=== PATIENT | male | born 1985 | race Caucasian/White ===

== ENCOUNTER 2017-12-23 10:04 | Day surgery (SDC) | payer MEDICAID ==
[2017-12-23] MEDS ORDERED: ceFAZolin 1 gm FROZEN Premix 2 GM/100 ML ML IVPB ONE (14:10)
[2017-12-23] MEDS ORDERED: Lidocaine Hydrochloride 10 ML INJ ONE (14:10)
[2017-12-23] MEDS ORDERED: Bupivacaine 0.25% 20 ML INJ IJ ONE ×2 (14:11→15:29)
[2017-12-23] MEDS ORDERED: Propofol 10 mg/ml Inj (20 ML) ONE (14:16)
[2017-12-23] MEDS ORDERED: Midazolam 2 MG/2 ML VIAL ONE (14:16)
[2017-12-23] MEDS ORDERED: Propofol 10 mg/ml 1,000 MG/100 ML VIAL ONE (14:25)
[2017-12-23] MEDS ORDERED: Oxycodone/Acetaminophen 5/325 mg Tab PO PRN ×2 (15:46)
[2017-12-23] MEDS ORDERED: HYDROmorphone 0.5 mg/0.5 ml ISec IVP PRN (15:49)
--- NOTE | 2017-12-23 15:54 | PCM.SURG1 ---
Surgeon's Initial Post Op Note - Surgeon's Notes Surgeon: Dr. Adams Ro Precision Dyer: Pinky Hernandes PGY1, Brook Abdi PGY3 Type of Anesthesia: IV Sedation, Local Anesthesia Administered By: Dr. Alfaro Pre-Operative Diagnosis: gangrenous changes to the right hallux Operative Findings: see dictation. Injectibles: preop- 20 cc of 1:1 mixture of .25% marcaine and 1% Lidocaine. postop- 10 cc of .25% marcaine. Materials: 3-0 Prolene, Integra single layer graft. pathology: distal phalanx and proximal phalanx bone cultures. Deep wound cultures taken intra-op Post-Operative Diagnosis: same Operation Performed: 1)Right partial hallux amputation. 2)Complex wound closure of the distal aspect of the right hallux Specimen/Specimens Removed: Distal phalanx and proximal phalanx of the hallux sent for pathology. Estimated Blood Loss: EBL {In ML}: 10 Blood Products Given: N/A Drains Used: No Drains Post-Op Condition: Good Date of Surgery/Procedure: 12/23/17 Time of Surgery/Procedure: 15:57
[2017-12-23 16:07] VITALS: O2SAT 100
[2017-12-23 17:00] VITALS: RESP 18; TEMP 97.7
--- NOTE | 2017-12-23 17:20 | RAD ---
Date of service: 12/23/2017 PROCEDURE: Right Foot Radiographs. HISTORY: Status post right partial hallux amputation COMPARISON: None. FINDINGS: BONES: The bones are diffusely demineralized limiting detail and evaluation. Apparent partial resection of the distal phalanx. There are what appear to represent destructive changes of the distal aspect of the proximal phalanx great toe with apparent soft tissues of the distal stump. There are also destructive changes of the distal phalanx 2nd toe.. Note that the possibility of destructive changes the distal phalanges of the 3rd 4th and 5th toes not excluded. Tiny posterior calcaneal enthesophyte JOINTS: Probable mild DJD 1st MTP joint.. Note that the third cuneiform and cuboid difficult to separate from 1 another due to diffuse demineralization. SOFT TISSUES: As above. Diffuse infiltration changes of the remaining soft tissues; rule out cellulitis OTHER FINDINGS: None. IMPRESSION: Diffuse demineralization limits evaluation. Apparent partial resection of the distal phalanx. There are what appear to represent destructive changes of the distal aspect of the proximal phalanx great toe with apparent soft tissues of the distal stump. There are also destructive changes of the distal phalanx 2nd toe.. Note that the possibility of destructive changes the distal phalanges of the 3rd 4th and 5th toes not excluded. Diffuse infiltration changes of the remaining soft tissues; rule
[2017-12-23 18:41] VITALS: BP 123/69; PULSE 80
--- NOTE | 2017-12-26 16:37 | PCM.OP ---
Operative Report - Operative Report Date of Surgery/Procedure: 12/23/17 Time of Surgery/Procedure: 14:30 Surgeon: Dr. Adams Ro DPM Tube Wrapper: Pinky Hernandes PGY1 Brook Abdi PGY3 Anesthesia/Sedation: IV sedation with local anesthesia Preoperatively: 20 cc of 1:1 mixture of .25% Marcaine and 1% Lidocaine proximal hallux block Postoperatively: 10 cc of 25% Marcaine proximal hallux block Pre-Operative Diagnosis: gangrenous changes to the right hallux with a nonhealing wound secondary to trauma. Post-Operative Diagnosis: gangrenous changes to the right hallux with a nonhealing wound secondary to trauma. Indication for Surgery: The patient is a 32 year-old male with the above diagnoses. The patient has exhausted all conservative treatment at this time and now requires surgical intervention. The patient signed the consent after careful explanation of risks, benefits, complication and alternatives for surgical procedure. No guarantees were given nor implied. Operative Findings: The patient was brought in to the operating room and placed on the operating room table in a supine position. Timeout was performed for identification of the correct patient and procedure. After induction of IV sedation, the patient received a total of 20mL of 1:1 mixture of 1% lidocaine plain and 0.25% marcaine plain in a local block type fashion to the right hallux. Once local anesthesia was achieved, well padded tourniquet was placed around the ankle at 200 mmHG. The right foot and ankle were then prepped and draped in normal sterile manner. Procedure/Operation Description: 1. Right partial hallux amputation 2. Complex wound closure of the distal aspect of the right hallux Procedure #1: partial amputation of the right hallux Attention was directed to the distal tip of the right hallux where necrotic scab was noted held to the hallux with sutures. Using a sterile scissor the sutures were removed. Upon removal of the scab, a wound was noted with exposed distal phalanx of the hallux. Bone was resected down to the midshaft of proximal phalanx of the hallux using a rongeur. The bone was resected and passed from the operative field and sent over for pathology. Wound cultures were also taken at this time. All necrotic and nonviable tissue was then excisionally debrided from the surgical site creating a viable flap of the skin to cover the hallux. The wound was then copiously irrigated using sterile saline. Procedure #2: Complex wound closure of the hallux Attention was then directed to the flap created from the previous procedure. A viable flap was created leaving the blood supply intact on the medial aspect of the fla to cover the tip of the hallux. The flap was then reapproximated with the skin. Care was taken to identify and retract all neurovascular structures. Integra single layer graft measuring 2 x 2 inches was then embedded onto the tip of the hallux. The flap was then reapproximately to the hallux using a 4-0 prolene. The tourniquet was then deflated after 48 minutes and blood flow was noted to be intact to the skin flap. 10 cc of .25% Marcaine was then injected postoperatively. The incision site was dressed with xeroform, gauze, oxana and KILO. Estimated Blood Loss: 10 cc Complications: none Specimen: Proximal and distal phalanx of the hallux to pathology. Wound cultures of the right hallux Discharge & Condition: The patient tolerated the anesthesia and procedure well and was escorted to the recovery room with vital signs stable and neurovascular status intact to the right foot. Patient is to weightbearing as tolerated to the right foot with a surgical shoe. This patient will be seen and followed by Dr. Ro as an outpatient in his office.
== END 2017-12-23 19:30 | disposition home or self-care (01) ==
LOC: C.SDS 10:04
PROVIDERS: ATTEND Podiatrist Foot & Ankle Surgery
DX: I96 Gangrene, not elsewhere classified (principal); S91.101A Unspecified open wound of right great toe without damage to nail, initial encounter; L08.9 Local infection of the skin and subcutaneous tissue, unspecified; X58.XXXA Exposure to other specified factors, initial encounter
CPT/HCPCS: 28810; 73630; 87070; 88305; 97116; 97161; C9363; G8978; G8979; G8980; J0690; J2001; J2250; J2704; J3010